=== PATIENT | female | born 1975 | race African-American/Black ===

== ENCOUNTER 2020-07-04 11:04 | Emergency (ER) | payer SELFPAY ==
[~2020-07-04] VITALS: Ht 157.5 cm; Wt 63.6 kg
[~2020-07-04 11:04] MED LIST: DOXYCYCLINE 10100 MG PO; LORTAB 5/500 501 TAB PO; NATURAL IRON65 MG PO; NO HOME MEDICATIONS; NO HOME MEDICATONS; NORCO 325 MG-51 TAB PO; PHENERGAN 25 TA25 MG PO; ZOFRAN 4MG T4 MG/TAB PO
[2020-07-04 11:44] LABS: BASO % 0.4 % (0.0-2.0); EOS # 0.1 (0.0-0.7); EOS % 1.4 % (0-4.0); GRAN # 3.4 (1.4-6.5); GRAN % 43.9 % (42.2-75.2); HEMOGLOBIN 12.1 g/dl (12.5-16.0); LYMPH # 3.5 (1.2-3.4); LYMPH % 45.7 % (20.0-51.0); MEAN CELL VOLUME 86 fl (80.0-100.0); MEAN CORPUSCULAR HEMOGLOBIN 29 pg (27.0-31.0); MEAN CORPUSCULAR HGB CONC 33 g/dl (33.0-37.0); MEAN PLATELET VOLUME 10.4 fl (7.4-10.4); MONO # 0.7 (0.1-0.6); MONO % 8.5 % (1.7-9.3); PLATELET COUNT 249 K/mm3 (130-400); RED BLOOD COUNT 4.23 M/mm3 (4.10-5.30); REDCELL DISTRIBUTION WIDTH-CV 13.1 % (11.5-14.5)
[2020-07-04 11:46] LABS: HEMATOCRIT 36.2 % (37.0-47.0)
[2020-07-04 11:49] LABS: ALBUMIN 3.7 gm/dL (3.5-5.0); BILIRUBIN,TOTAL 0.5 mg/dL (0.0-1.0); CALCIUM 9.7 mg/dL (8.4-10.2); CREATININE, serum 0.33 (0.52-1.25); POTASSIUM 3.7 mmol/L (3.4-5.0); TOTAL PROTEIN 7.4 gm/dL (6.4-8.2)
[2020-07-04 11:53] LABS: COLLECTION METHOD CLEAN CATCH
[2020-07-04 12:12] LABS: AMORPHOUS CRYSTAL Present /uL; MUCOUS Present /lpf; PH 9 (5-8); SQUAMOUS EPITHELIAL 0-2 /hpf; URINE APPEARANCE Turbid; URINE BACTERIA None Seen /hpf; URINE BILIRUBIN Negative (NEGATIVE); URINE BLOOD 3+ (NEGATIVE); URINE COLOR Amber; URINE GLUCOSE Negative (NEGATIVE); URINE KETONE Negative (NEGATIVE); URINE LEUKOCYTE ESTERASE Trace (NEGATIVE); URINE NITRATE Negative (NEGATIVE); URINE PROTEIN(semi-quant) 2+ (NEGATIVE); URINE RBC >50 /hpf; URINE UROBILINOGEN Negative (NEGATIVE)
[2020-07-04] MEDS ORDERED: FLOMAX 0.40.4 MG/CAP PO (12:36)
[2020-07-04] MEDS ORDERED: ZOFRAN ODT4 MG PO (12:36)
[2020-07-04] MEDS ORDERED: NORCO 325 MG-51 TAB PO (12:36)
[2020-07-04] MEDS ORDERED: CEFTIN500 MG PO (12:53)
[2020-07-04 15:49] VITALS: BP 134/74; PULSE 88; TEMP 97.5
== END 2020-07-04 13:02 | disposition home or self-care (01) ==
LOC: COL.ER 11:04
PROVIDERS: Physician Assistant
DX: R10.9 Unspecified abdominal pain (principal); R11.2 Nausea with vomiting, unspecified; Z87.442 Personal history of urinary calculi; Z88.6 Allergy status to analgesic agent
CPT/HCPCS: J1885; J7030

== ENCOUNTER → 2021-09-16 | Outpatient (CLI) | payer BC ==
[~2021-09-16] MED LIST changes: +CEFTIN500 MG PO; +FLOMAX 0.40.4 MG/CAP PO; +ZOFRAN ODT4 MG PO
== END ==
LOC: COL.RAD 06:54
DX: E04.9 Nontoxic goiter, unspecified (principal)

== ENCOUNTER 2021-10-13 16:16 | Emergency (ER) | payer BC ==
[~2021-10-13] VITALS: Ht 157.5 cm; Wt 77.3 kg
[2021-10-13 17:30] LABS: COLLECTION METHOD CLEAN CATCH
[2021-10-13 17:34] LABS: HEMATOCRIT 42.8 % (37.0-47.0); HEMOGLOBIN 14.1 g/dl (12.5-16.0); MEAN CELL VOLUME 83 fl (80.0-100.0); MEAN CORPUSCULAR HEMOGLOBIN 27 pg (27-31); MEAN CORPUSCULAR HGB CONC 33 g/dl (33.0-37.0); MEAN PLATELET VOLUME 9.9 fl (7.4-10.4); PLATELET COUNT 219 K/mm3 (130-400); RED BLOOD COUNT 5.18 M/mm3 (4.10-5.30); REDCELL DISTRIBUTION WIDTH-CV 15.2 % (11.5-14.5)
[2021-10-13 17:39] LABS: MUCOUS Present (NOT PRESENT); SQUAMOUS EPITHELIAL 0-2 /hpf (0-10); URINE BACTERIA None Seen /hpf (NONE SEEN)
[2021-10-13 17:40] LABS: URINE APPEARANCE Clear (CLEAR/HAZY); URINE BLOOD 1+ (NEGATIVE); URINE COLOR Yellow (YELLOW); URINE GLUCOSE Negative (NEGATIVE); URINE KETONE TRACE (NEGATIVE); URINE NITRATE Negative (NEGATIVE); URINE PROTEIN(semi-quant) 2+ (NEGATIVE); URINE UROBILINOGEN 0.2 E.U/dL (0.2-1.0)
[2021-10-13 17:53] LABS: BILIRUBIN,TOTAL 0.4 mg/dL (0.2-1.2); CALCIUM 8.5 mg/dL (8.4-10.2); CREATININE, serum 0.84 mg/dL (0.57-1.11); POTASSIUM 4.2 mmol/L (3.5-4.5); TOTAL PROTEIN 8.6 gm/dL (6.2-8.1)
[2021-10-13 18:09] LABS: BAND 6 % (0-10); EOSINOPHIL 5 % (0-4); LYMPHOCYTE 45 % (20.0-51.0); NEUTROPHILS 33 % (42.0-75.2); PLATELET ESTIMATE NORMAL (NORMAL)
[2021-10-13 20:15] VITALS: BP 129/83; PULSE 60; TEMP 99
== END 2021-10-13 20:15 | disposition home or self-care (01) ==
LOC: COL.ER 16:16
PROVIDERS: Physician Assistant
DX: R50.9 Fever, unspecified (principal); Z20.822 Contact with and (suspected) exposure to COVID-19
CPT/HCPCS: J1885; J7030

== ENCOUNTER → 2021-10-14 | Outpatient (CLI) | payer BC ==
[~2021-10-14] MED LIST changes: +ERGOCALCIFER50000 IU PO; +PRINIVIL10 MG PO; +TAPAZOLE10 MG PO; +TOPROL XL100 MG PO
== END ==
LOC: COL.LAB 13:52
DX: R19.7 Diarrhea, unspecified (principal)

== ENCOUNTER 2021-10-15 10:15 | Emergency (ER) | payer BC ==
[~2021-10-15] VITALS: Ht 157.5 cm; Wt 73.6 kg
[~2021-10-15 10:15] MED LIST changes: -ERGOCALCIFER50000 IU PO; -PRINIVIL10 MG PO; -TAPAZOLE10 MG PO; -TOPROL XL100 MG PO
[2021-10-15 11:12] LABS: HEMATOCRIT 45.9 % (37.0-47.0); HEMOGLOBIN 15.5 g/dl (12.5-16.0); MEAN CELL VOLUME 82 fl (80.0-100.0); MEAN CORPUSCULAR HEMOGLOBIN 28 pg (27-31); MEAN CORPUSCULAR HGB CONC 34 g/dl (33.0-37.0); MEAN PLATELET VOLUME 9.9 fl (7.4-10.4); PLATELET COUNT 208 K/mm3 (130-400); RED BLOOD COUNT 5.57 M/mm3 (4.10-5.30); REDCELL DISTRIBUTION WIDTH-CV 15.6 % (11.5-14.5)
[2021-10-15 11:42] LABS: CREATININE, serum 0.73 mg/dL (0.57-1.11); POTASSIUM 4.1 mmol/L (3.5-4.5)
[2021-10-15 11:43] LABS: ALBUMIN 4.1 gm/dL (3.5-5.0); BILIRUBIN,TOTAL 0.4 mg/dL (0.2-1.2); CALCIUM 8.8 mg/dL (8.4-10.2); TOTAL PROTEIN 8.9 gm/dL (6.2-8.1); TROPONIN-I 0.017 ng/mL (0.00-0.033)
[2021-10-15 12:18] LABS: COLLECTION METHOD CLEAN CATCH
[2021-10-15 12:31] LABS: BAND 9 % (0-10); EOSINOPHIL 4 % (0-4); LYMPHOCYTE 59 % (20.0-51.0); NEUTROPHILS 25 % (42.0-75.2)
[2021-10-15 12:34] LABS: PH 6.5 (5.0-8.5); URINE APPEARANCE Hazy (CLEAR/HAZY); URINE BLOOD 1+ (NEGATIVE); URINE COLOR Yellow (YELLOW); URINE GLUCOSE Negative (NEGATIVE); URINE KETONE 3+ (NEGATIVE); URINE NITRATE Negative (NEGATIVE); URINE PROTEIN(semi-quant) 3+ (NEGATIVE); URINE UROBILINOGEN 0.2 E.U/dL (0.2-1.0)
[2021-10-15 12:40] LABS: MUCOUS Present (NOT PRESENT); SQUAMOUS EPITHELIAL 0-2 /hpf (0-10); URINE BACTERIA None Seen /hpf (NONE SEEN)
[2021-10-15 12:46] LABS: PLATELET ESTIMATE NORMAL (NORMAL)
[2021-10-15] MEDS ORDERED: ZOFRAN ODT4 MG PO (14:05)
[2021-10-15 14:29] VITALS: BP 143/89; PULSE 71; TEMP 98.6
== END 2021-10-15 14:34 | disposition home or self-care (01) ==
LOC: COL.ER 10:15
PROVIDERS: Emergency Medicine
DX: R19.7 Diarrhea, unspecified (principal); D72.819 Decreased white blood cell count, unspecified; R74.8 Abnormal levels of other serum enzymes; F17.200 Nicotine dependence, unspecified, uncomplicated; Z20.822 Contact with and (suspected) exposure to COVID-19
CPT/HCPCS: J2765; J3010; J7030; Q9967

== ENCOUNTER 2021-10-17 09:27 | Outpatient (CLI) | payer BC ==
[~2021-10-17] VITALS: Ht 157.5 cm; Wt 72.2 kg
[2021-10-17 10:09] LABS: HEMATOCRIT 46.5 % (37.0-47.0); HEMOGLOBIN 15.4 g/dl (12.5-16.0); MEAN CELL VOLUME 81 fl (80.0-100.0); MEAN CORPUSCULAR HEMOGLOBIN 27 pg (27-31); MEAN CORPUSCULAR HGB CONC 33 g/dl (33.0-37.0); MEAN PLATELET VOLUME 10.4 fl (7.4-10.4); PLATELET COUNT 227 K/mm3 (130-400); RED BLOOD COUNT 5.75 M/mm3 (4.10-5.30); REDCELL DISTRIBUTION WIDTH-CV 15.8 % (11.5-14.5)
[2021-10-17 10:16] LABS: INR 1.1 (0.8-3.0); PROTHROMBIN TIME 12.8 SECONDS (9.7-12.8)
[2021-10-17 10:23] LABS: CALCIUM 8.8 mg/dL (8.4-10.2); CREATININE, serum 0.78 mg/dL (0.57-1.11); POTASSIUM 3.9 mmol/L (3.5-4.5)
[2021-10-17 10:59] VITALS: BP 130/90; PULSE 73; TEMP 98.1
[2021-10-17] MEDS ORDERED: TAPAZOLE10 MG PO (11:10)
[2021-10-17] MEDS ORDERED: TOPROL XL100 MG PO (11:10)
[2021-10-17] MEDS ORDERED: ERGOCALCIFER50000 IU PO (11:11)
[2021-10-17] MEDS ORDERED: PRINIVIL10 MG PO (11:12)
[2021-10-17 12:15] VITALS: BP 132/86; PULSE 72
--- NOTE | 2021-10-17 12:18 | NUR ---
BS REPORT RECEIVED FROM [facility]. PT IS RESTING COMFORTABLY AFTER JAZMINE, ANOTHER WARM BLANKET PROVIDED. PT UPDATED ON POC, SHE VERBALIZES UNDERSTANDING. CALL LIGHT IN REACH
[2021-10-17 12:30] VITALS: BP 128/89; PULSE 67
[2021-10-17 12:45] VITALS: BP 123/85; PULSE 67
[2021-10-17 13:15] VITALS: BP 122/85; PULSE 73
[2021-10-17 13:54] VITALS: BP 120/89; PULSE 75
--- NOTE | 2021-10-17 14:27 | NUR ---
Pt has done well during her recovery. She does report her throat hurts with swallowing. She has been able to drink some water, and eat some apple sauce and pudding. Pt has not been coughing, she denies any nausea or abd/chest pain. I did advise Dr. Root of her sore throat, and she advised to tell pt she may have sore throat for several days. Pt has been up and amb with slow but steady gait with assist x 1.
== END 2021-10-17 15:37 | disposition home or self-care (01) ==
LOC: COL.RAD 09:27
PROVIDERS: Internal Medicine Adult Congenital Heart Disease
DX: I08.1 Rheumatic disorders of both mitral and tricuspid valves (principal)
CPT/HCPCS: J2704; J7030

== ENCOUNTER → 2022-03-03 | Outpatient (CLI) | payer BC ==
[~2022-03-03] MED LIST changes: +ERGOCALCIFER50000 IU PO; +PRINIVIL10 MG PO; +TAPAZOLE10 MG PO; +TOPROL XL100 MG PO
== END ==
LOC: MC.RAD 16:11
DX: Z12.31 Encounter for screening mammogram for malignant neoplasm of breast (principal)

== ENCOUNTER → 2022-04-29 | Outpatient (CLI) | payer BC | LOC: COL.RAD 04-21 14:00 | DX: E05.90 Thyrotoxicosis, unspecified without thyrotoxic crisis or storm (principal) | CPT/HCPCS: A9516 ==